=== PATIENT | male | born 1990 | race Caucasian/White ===

== ENCOUNTER 2017-09-10 12:04 | Inpatient (IN) | payer OTHER ==
[2017-09-10 13:44] VITALS: BMI 22.1
--- NOTE | 2017-09-10 17:25 | HP ---
COWS - Scale Resting Pulse: 0= [place] 80 or Below Sweatin= Chills/Flushing Restless Observation: 3= Extraneous Movement Pupil Size: 2= Moderately Dilated Bone or Joint Aches: 4=Acute Joint/Muscle Pain Runny Nose/ Eye Tearin= Runny Nose/Eyes GI Upset > 30mins: 1= Stomach Cramp Tremor Observation: 2= Slight Tremor Visible Yawning Observation: 1= 1-2x During Session Anxiety or Irritability: 2=Irritable/Anxious Goose Flesh Skin: 0=Smooth Skin COWS Score: 18 Admission ROS S - [facility] Chief Complaint: WITHDRAWAL SX FROM HEROIN Allergies/Adverse Reactions: Allergies Allergy/AdvReac Type Severity Reaction Status Date / Time buprenorphine [From Suboxone] Allergy Hives Verified 09/10/17 14:07 naloxone [From Suboxone] Allergy Hives Verified 09/10/17 14:07 History of Present Illness: 26 Y/O MALE WITH A HX OF HEROIN AND COCAINE DEPENDENCE SEEKING DETOX [place]. Exam Limitations: No Limitations - Ebola screening Have you traveled outside of the country in the last 21 days: No Have you had contact with anyone from an Ebola affected area: No Have you been sick,other than usual withdrawal symptoms: No - Review of Systems Constitutional: Chills, Loss of Appetite, Night Sweats, Changes in sleep, Unintentional Wgt. Loss EENT: reports: Tearing, Nose Congestion Respiratory: reports: No Symptoms reported Cardiac: reports: No Symptoms Reported GI: reports: Constipated, Diarrhea, Nausea, Poor Appetite, Poor Fluid Intake, Vomiting : reports: No Symptoms Reported Musculoskeletal: reports: Back Pain, Joint Pain, Muscle Pain Integumentary: reports: Dryness Neuro: reports: Tremors Endocrine: reports: No Symptoms Reported Hematology: reports: No Symptoms Reported Psychiatric: reports: Orientated x3 Other Systems: Reviewed and Negative Patient History - Patient Medical History Hx Anemia: No Hx Asthma: No Hx Chronic Obstructive Pulmonary Disease (COPD): No Hx Cardiac Disorders: No Hx Hypertension: No Hx Hypercholesterolemia: No HX Cerebrovascular Accident: No Hx Seizures: No Hx Diabetes: No Hx Gastrointestinal Disorders: No Hx Genitourinary Disorders: No Hx Sexually Transmitted Disorders: No Hx Renal Disease (ESRD): No Hx Thyroid Disease: No Hx Human Immunodeficiency Virus (HIV): No (NEGATIVE HX) Hx Hepatitis C: No Hx Depression: No Hx Suicide Attempt: No (DENIES) Hx Bipolar Disorder: No Hx Schizophrenia: No - Patient Surgical History Past Surgical History: No Hx Neurologic Surgery: No Hx Cataract Extraction: No Hx Cardiac Surgery: No Hx Lung Surgery: No Hx Breast Surgery: No Hx Breast Biopsy: No Hx Abdominal Surgery: No Hx Appendectomy: No Hx Cholecystectomy: No Hx Genitourinary Surgery: No Hx Orthopedic Surgery: No Anesthesia Reaction: No - PPD History Previous Implant?: Yes Documented Results: Negative w/o proof Implanted On Prior [facility] Admission?: No PPD to be Administered?: Yes - Reproductive History Patient is a Female of Child Bearing Age (11 -55 yrs old): No (MALE) Patient : No - Smoking Cessation Smoking history: Current every day smoker Have you smoked in the past 12 months: Yes Aproximately how many cigarettes per day: 10 Hx Chewing Tobacco Use: No Initiated information on smoking cessation: Yes 'Breaking Loose' booklet given: 09/10/17 - Substance & Tx. History Hx Alcohol Use: Yes (ON OCASSIONS) Hx Substance Use: Yes (HEROIN/COCAINE) Substance Use Type: Cocaine, Heroin Hx Substance [facility] [place] [facility] - Substances Abused Heroin Route: Injection Frequency: Daily Amount used: 0.5 gram Age of first use: 20 Date of Last Use: 09/09/17 Cocaine Route: Inhalation Frequency: 1-2 times per week Amount used: 0.5 gram Age of first use: 20 Date of Last Use: 09/08/17 Family Disease History - Family Disease History Family Disease History: Other: Father (HTN) Admission Physical Exam [facility] - Vital Signs Vital Signs: Vital Signs - 24 hr 09/10/17 13:40 Temperature 97.4 F L Pulse Rate 70 Respiratory 20 Rate Blood Pressure 99/55 - Physical General Appearance: Yes: Moderate Distress, Irritable, Anxious HEENTM: Yes: EOMI, Normocephalic, MAN, Pharynx Normal Respiratory: Yes: Chest Non-Tender, Lungs Clear, Normal Breath Sounds, No Respiratory Distress Neck: Yes: No masses,lesions,Nodules, Supple, Trachea in good position Breast: Yes: Breast Exam Deferred Cardiology: Yes: Regular Rhythm, Regular Rate, S1, S2 Abdominal: Yes: Normal Bowel Sounds, Non Tender, Flat, Soft Genitourinary: Yes: Other (N/C) Back: Yes: Within Normal Limits Musculoskeletal: Yes: full range of Motion, Gait Steady Extremities: Yes: Normal Range of Motion, Non-Tender Neurological: Yes: radiology physician assistant II-XII NML intact, Fully Oriented, Alert, Motor Strength 5/5 Integumentary: Yes: Dry, Warm, Track Álvarez (LEFT ELBOW. NO REDNESS OR SWELLING) - Diagnostic (1) Opioid dependence with withdrawal Current Visit: Yes Status: Acute (2) Cocaine dependence, uncomplicated Current Visit: Yes Status: Acute Cleared for Admission [facility] - Detox or Rehab [facility] Level of Care: Medically Managed Detox Regimen/Protocol: Methadone [facility] Breath Alcohol Content Breath Alcohol Content: 0 Urine Drug Screen - Results Drug Screen Negative: No Urine Drug Screen Results: STEPHAN-Cocaine, OPI-Opiates, BZO-Benzodiazepines, MTD- Methadone, OXY-Oxycodone
[2017-09-10] MEDS ORDERED: MENTHOL/PHENOL 1 EACH UD MM PRN (17:47)
[2017-09-10] MEDS ORDERED: MAGNESIUM HYDROX 2400MG/30ML ORAL SUSPENSION 30 ML CUP PO PRN (17:47)
[2017-09-10] MEDS ORDERED: MAGNESIUM CITRATE 300 ML BOTTLE PO PRN (17:47)
[2017-09-10] MEDS ORDERED: guaiFENesin/D-METHORPHAN HB 10 ML UNIT-DOSE CUPS PO PRN (17:47)
[2017-09-10] MEDS ORDERED: NICOTINE POLACRILEX 2 MG GUM BUC PRN (17:47)
[2017-09-10] MEDS ORDERED: P-EPHED 60MG/TRIPROLIDI 2.5MG TABLET PO PRN (17:47)
[2017-09-10] MEDS ORDERED: IBUPROFEN 400 MG TABLET (FP) PO PRN (17:47)
[2017-09-10] MEDS ORDERED: ACETAMINOPHEN 325 MG TABLET (FP) PO PRN (17:47)
[2017-09-10] MEDS ORDERED: MAG HYDROX/AL HYDROX/SIMETH 30 ML UNIT-DOSE CUP PO PRN (17:47)
[2017-09-10] MEDS ORDERED: METHADONE HCL 10 MG TABLET (FOR DETOX USE ONLY) PO ONE ×2 (19:00→23:00)
[2017-09-10] MEDS ORDERED: METHADONE HCL 10 MG TABLET (FOR DETOX USE ONLY) ONE (21:25)
[2017-09-10] MEDS: THIAMINE HCL 100 MG TABLET (FP) PO SCH (21:31)
[2017-09-10] MEDS: NICOTINE 14 MG/24 HOURS TOPICAL PATCH TD SCH (21:31)
[2017-09-10] MEDS: diazePAM 5 MG TABLET PO PRN (21:32)
[2017-09-10 23:24] LABS: URINE APPEARANCE SLCLOUDY; URINE BILIRUBIN NEGATIVE (NEGATIVE); URINE BLOOD NEGATIVE (NEGATIVE); URINE COLOR DKYELLOW; URINE GLUCOSE (UA) NEGATIVE (NEGATIVE); URINE KETONE NEGATIVE (NEGATIVE); URINE LEUK ESTERASE NEGATIVE (NEGATIVE); URINE NITRITE NEGATIVE (NEGATIVE); URINE PROTEIN NEGATIVE (NEGATIVE); URINE UROBILINOGEN NEGATIVE mg/dL (0.2-1.0)
[2017-09-11] MEDS ORDERED: METHADONE HCL 10 MG TABLET (FOR DETOX USE ONLY) PO ONE (10:00)
[2017-09-11] MEDS: NICOTINE 14 MG/24 HOURS TOPICAL PATCH TD SCH (10:06)
[2017-09-11] MEDS: PRENATAL VITAMINS W/ FOLIC ACID TABLET (FP) PO SCH (10:06)
[2017-09-11] MEDS: diazePAM 5 MG TABLET PO PRN ×3 (10:07→22:03)
[2017-09-11 10:13] LABS: CHLORIDE 104 mmol/L (98-107); HEMATOCRIT 41.7 % (35.4-49); HEMOGLOBIN 14.1 GM/dL (11.7-16.9); MCH 29.7 pg (25.7-33.7); MCHC 33.8 g/dl (32.0-35.9); MEAN CELL VOLUME 88.1 fl (80-96); MEAN PLT VOLUME 9.2 fl (7.5-11.1); PLATELET COUNT 179 K/MM3 (134-434); POTASSIUM 4.3 mmol/L (3.5-5.1); RBC 4.74 M/mm3 (4.00-5.60); RDW 13.1 % (11.9-15.9); SODIUM 142 mmol/L (136-145); WHITE BLOOD COUNT 8.6 K/mm3 (4.0-10.0)
[2017-09-11 10:30] LABS: ALBUMIN 4.1 g/dl (3.4-5.0); ALK PHOS 64 U/L (45-117); ANION GAP 8 (8-16); BILIRUBIN,TOTAL 1.2 mg/dL (0.2-1.0); BLOOD UREA NITROGEN 14 mg/dL (7-18); CALCIUM 8.9 mg/dL (8.5-10.1); CO2 30 mmol/L (21-32); GLUCOSE,RANDOM 71 mg/dL (74-106); SGOT/AST 9 U/L (15-37); SGPT/ALT 19 U/L (12-78)
[2017-09-11] MEDS ORDERED: FLU VACCINE QUAD 60 MCG/0.5 ML (MDV 17-18) IM ONE (12:00)
--- NOTE | 2017-09-11 12:15 | PN ---
S COWS - Scale Resting Pulse: 0= [place] 80 or Below Sweatin= Chills/Flushing Restless Observation: 1= Difficult to Sit Still Pupil Size: 0= Normal to Room Light Bone or Joint Aches: 2= Severe Diffuse Aches Runny Nose/ Eye Tearin= None GI Upset > 30mins: 0= None Tremor Observation of Outstretched Hands: 2= Slight Tremor Visible Yawning Observation: 1= 1-2x During Session Anxiety or Irritability: 2=Irritable/Anxious Goose Flesh Skin: 3=Piloerection COWS Score: 12 BHS Progress Note (SOAP) Subjective: Interrupted Sleep, Sweating, Fatigue, Tremors. Objective: PT. A & O X 3, OBSERVED AMBULATING ON UNIT. NO ACUTE DISTRESS. 09/11/17 12:14 Vital Signs Temperature 98.7 F 09/11/17 09:17 Pulse Rate 63 09/11/17 09:17 Respiratory Rate 18 09/11/17 09:17 Blood Pressure 121/76 09/11/17 09:17 O2 Sat by Pulse Oximetry (%) Laboratory Tests 09/10/17 09/11/17 09/11/17 Unknown 06:00 06:00 WBC 8.6 RBC 4.74 Hgb 14.1 Hct 41.7 MCV 88.1 MCH 29.7 MCHC 33.8 RDW 13.1 Plt Count 179 MPV 9.2 Sodium 142 Potassium 4.3 Chloride 104 Carbon Dioxide 30 Anion Gap 8 BUN 14 Creatinine 1.0 Creat Clearance w eGFR > 60 Random Glucose 71 L Calcium 8.9 Total Bilirubin 1.2 H AST 9 L ALT 19 Alkaline Phosphatase 64 Total Protein 7.0 Albumin 4.1 Urine Color Dkyellow Urine Appearance Slcloudy Urine pH 5.0 Ur Specific [place] 1.027 Urine Protein Negative Urine Glucose (UA) Negative Urine Ketones Negative Urine Blood Negative Urine Nitrite Negative Urine Bilirubin Negative Urine Urobilinogen Negative Ur Leukocyte Esterase Negative RPR Titer 09/11/17 06:00 WBC RBC Hgb Hct MCV MCH MCHC RDW Plt Count MPV Sodium Potassium Chloride Carbon Dioxide Anion Gap BUN Creatinine Creat Clearance w eGFR Random Glucose Calcium Total Bilirubin AST ALT Alkaline Phosphatase Total Protein Albumin Urine Color Urine Appearance Urine pH Ur Specific [place] Urine Protein Urine Glucose (UA) Urine Ketones Urine Blood Urine Nitrite Urine Bilirubin Urine Urobilinogen Ur Leukocyte Esterase RPR Titer Nonreactive LABS NOTED. Assessment: 09/11/17 12:15 WITHDRAWAL SYMPTOMS. Plan: CONTINUE DETOX.
--- NOTE | 2017-09-11 14:09 | EKG ---
Test Reason : Blood Pressure : / mmHG Vent. Rate : 055 BPM Atrial Rate : 055 BPM P-R Int : 146 ms QRS Dur : 090 ms QT Int : 424 ms P-R-T Axes : 046 085 072 degrees QTc Int : 405 ms SINUS BRADYCARDIA OTHERWISE NORMAL ECG NO PREVIOUS ECGS AVAILABLE Confirmed by MD Amos, Santana ([id number]) on 09/11/2017 2:08:53 PM Referred By: Confirmed By:Santana Trinidad MD
[2017-09-11] MEDS: LOPERAMIDE HCL 2 MG CAPSULE PO PRN (20:36)
[2017-09-11] MEDS: THIAMINE HCL 100 MG TABLET (FP) PO SCH (21:59)
[2017-09-11] MEDS ORDERED: TRIMETHOBENZAMIDE HCL 200MG/2ML INJ IM ONE (22:00)
[2017-09-12] MEDS: diazePAM 5 MG TABLET PO PRN ×4 (03:45→22:25)
[2017-09-12] MEDS ORDERED: METHADONE HCL 5 MG TABLET (FOR DETOX USE ONLY) PO ONE (10:00)
[2017-09-12] MEDS: PRENATAL VITAMINS W/ FOLIC ACID TABLET (FP) PO SCH (10:13)
[2017-09-12] MEDS: NICOTINE 14 MG/24 HOURS TOPICAL PATCH TD SCH (10:13)
[2017-09-12] MEDS: LOPERAMIDE HCL 2 MG CAPSULE PO PRN (10:14)
--- NOTE | 2017-09-12 11:16 | PN ---
BHS COWS - Scale Resting Pulse: 0= [place] 80 or Below Sweatin= Chills/Flushing Restless Observation: 1= Difficult to Sit Still Pupil Size: 0= Normal to Room Light Bone or Joint Aches: 0= None Runny Nose/ Eye Tearin= None GI Upset > 30mins: 3= Vomiting/Diarrhea Tremor Observation of Outstretched Hands: 2= Slight Tremor Visible Yawning Observation: 1= 1-2x During Session Anxiety or Irritability: 2=Irritable/Anxious Goose Flesh Skin: 3=Piloerection COWS Score: 13 BHS Progress Note (SOAP) Subjective: Interrupted sleep, Sweating, Vomiting, Stomach Cramping. Objective: PT. A & O X 3. NO ACUTE DISTRESS. 09/12/17 11:15 Vital Signs Temperature 97.6 F 09/12/17 09:13 Pulse Rate 64 09/12/17 09:13 Respiratory Rate 18 09/12/17 09:13 Blood Pressure 141/92 09/12/17 09:13 O2 Sat by Pulse Oximetry (%) Laboratory Tests 09/10/17 09/11/17 09/11/17 Unknown 06:00 06:00 WBC 8.6 RBC 4.74 Hgb 14.1 Hct 41.7 MCV 88.1 MCH 29.7 MCHC 33.8 RDW 13.1 Plt Count 179 MPV 9.2 Sodium 142 Potassium 4.3 Chloride 104 Carbon Dioxide 30 Anion Gap 8 BUN 14 Creatinine 1.0 Creat Clearance w eGFR > 60 Random Glucose 71 L Calcium 8.9 Total Bilirubin 1.2 H AST 9 L ALT 19 Alkaline Phosphatase 64 Total Protein 7.0 Albumin 4.1 Urine Color Dkyellow Urine Appearance Slcloudy Urine pH 5.0 Ur Specific [place] 1.027 Urine Protein Negative Urine Glucose (UA) Negative Urine Ketones Negative Urine Blood Negative Urine Nitrite Negative Urine Bilirubin Negative Urine Urobilinogen Negative Ur Leukocyte Esterase Negative RPR Titer 09/11/17 06:00 WBC RBC Hgb Hct MCV MCH MCHC RDW Plt Count MPV Sodium Potassium Chloride Carbon Dioxide Anion Gap BUN Creatinine Creat Clearance w eGFR Random Glucose Calcium Total Bilirubin AST ALT Alkaline Phosphatase Total Protein Albumin Urine Color Urine Appearance Urine pH Ur Specific [place] Urine Protein Urine Glucose (UA) Urine Ketones Urine Blood Urine Nitrite Urine Bilirubin Urine Urobilinogen Ur Leukocyte Esterase RPR Titer Nonreactive LABS NOTED. Assessment: 09/12/17 11:15 WITHDRAWAL SYMPTOMS. Plan: CONTINUE DETOX.
[2017-09-12] MEDS ORDERED: cloNIDine HCL 0.1 MG TABLET PO PRN (12:36)
[2017-09-12] MEDS: THIAMINE HCL 100 MG TABLET (FP) PO SCH (22:25)
[2017-09-12] MEDS: hydrOXYzine PAMOATE 50 MG CAPSULE (FP) PO PRN (22:25)
[2017-09-13] MEDS ORDERED: METHADONE HCL 5 MG TABLET (FOR DETOX USE ONLY) PO ONE (10:00)
[2017-09-13] MEDS: PRENATAL VITAMINS W/ FOLIC ACID TABLET (FP) PO SCH (10:11)
[2017-09-13] MEDS: NICOTINE 14 MG/24 HOURS TOPICAL PATCH TD SCH (11:28)
--- NOTE | 2017-09-13 11:33 | PN ---
BHS Progress Note (SOAP) Subjective: Anxious, Fatigue, Sweating. Objective: PT. A & O X 2 (UNCERTAIN ABOUT CURRENT DAY/ DATE). PT. OBSERVED AMBULATING ON UNIT. NO ACUTE DISTRESS. 09/13/17 11:32 Vital Signs Temperature 97.2 F L 09/13/17 09:58 Pulse Rate 61 09/13/17 09:58 Respiratory Rate 20 09/13/17 09:58 Blood Pressure 112/74 09/13/17 09:58 O2 Sat by Pulse Oximetry (%) Laboratory Tests 09/10/17 09/11/17 09/11/17 Unknown 06:00 06:00 WBC 8.6 RBC 4.74 Hgb 14.1 Hct 41.7 MCV 88.1 MCH 29.7 MCHC 33.8 RDW 13.1 Plt Count 179 MPV 9.2 Sodium 142 Potassium 4.3 Chloride 104 Carbon Dioxide 30 Anion Gap 8 BUN 14 Creatinine 1.0 Creat Clearance w eGFR > 60 Random Glucose 71 L Calcium 8.9 Total Bilirubin 1.2 H AST 9 L ALT 19 Alkaline Phosphatase 64 Total Protein 7.0 Albumin 4.1 Urine Color Dkyellow Urine Appearance Slcloudy Urine pH 5.0 Ur Specific [place] 1.027 Urine Protein Negative Urine Glucose (UA) Negative Urine Ketones Negative Urine Blood Negative Urine Nitrite Negative Urine Bilirubin Negative Urine Urobilinogen Negative Ur Leukocyte Esterase Negative RPR Titer 09/11/17 06:00 WBC RBC Hgb Hct MCV MCH MCHC RDW Plt Count MPV Sodium Potassium Chloride Carbon Dioxide Anion Gap BUN Creatinine Creat Clearance w eGFR Random Glucose Calcium Total Bilirubin AST ALT Alkaline Phosphatase Total Protein Albumin Urine Color Urine Appearance Urine pH Ur Specific [place] Urine Protein Urine Glucose (UA) Urine Ketones Urine Blood Urine Nitrite Urine Bilirubin Urine Urobilinogen Ur Leukocyte Esterase RPR Titer Nonreactive LABS NOTED. Assessment: 09/13/17 11:32 WITHDRAWAL SYMPTOMS. Plan: CONTINUE DETOX. INCREASE DAILY PO FLUID INTAKE. ENCOURAGE AMBULATION.
[2017-09-13] MEDS: diazePAM 5 MG TABLET PO PRN ×2 (13:13→17:28)
[2017-09-13] MEDS ORDERED: diphenhydrAMINE HCL 25 MG CAPSULE (FP) PO ONE (21:46)
[2017-09-13] MEDS: THIAMINE HCL 100 MG TABLET (FP) PO SCH (22:28)
[2017-09-13] MEDS: diphenhydrAMINE HCL 50 MG CAPSULE PO PRN (22:28)
[2017-09-14] MEDS ORDERED: METHADONE HCL 10 MG TABLET (FOR DETOX USE ONLY) PO ONE (10:00)
[2017-09-14] MEDS: PRENATAL VITAMINS W/ FOLIC ACID TABLET (FP) PO SCH (10:06)
[2017-09-14] MEDS: NICOTINE 14 MG/24 HOURS TOPICAL PATCH TD SCH (10:06)
[2017-09-14] MEDS: hydrOXYzine PAMOATE 50 MG CAPSULE (FP) PO PRN ×2 (12:16→18:17)
--- NOTE | 2017-09-14 14:56 | PN ---
BHS Progress Note (SOAP) Subjective: Sweating, Fatigue, Anxious. Objective: PT. A & O X 3, OBSERVED AMBULATING ON UNIT. NO ACUTE DISTRESS. 09/14/17 14:55 Vital Signs Temperature 96.7 F L 09/14/17 13:23 Pulse Rate 70 09/14/17 13:23 Respiratory Rate 18 09/14/17 13:23 Blood Pressure 127/75 09/14/17 13:23 O2 Sat by Pulse Oximetry (%) Laboratory Tests 09/10/17 09/11/17 09/11/17 Unknown 06:00 06:00 WBC 8.6 RBC 4.74 Hgb 14.1 Hct 41.7 MCV 88.1 MCH 29.7 MCHC 33.8 RDW 13.1 Plt Count 179 MPV 9.2 Sodium 142 Potassium 4.3 Chloride 104 Carbon Dioxide 30 Anion Gap 8 BUN 14 Creatinine 1.0 Creat Clearance w eGFR > 60 Random Glucose 71 L Calcium 8.9 Total Bilirubin 1.2 H AST 9 L ALT 19 Alkaline Phosphatase 64 Total Protein 7.0 Albumin 4.1 Urine Color Dkyellow Urine Appearance Slcloudy Urine pH 5.0 Ur Specific [place] 1.027 Urine Protein Negative Urine Glucose (UA) Negative Urine Ketones Negative Urine Blood Negative Urine Nitrite Negative Urine Bilirubin Negative Urine Urobilinogen Negative Ur Leukocyte Esterase Negative RPR Titer 09/11/17 06:00 WBC RBC Hgb Hct MCV MCH MCHC RDW Plt Count MPV Sodium Potassium Chloride Carbon Dioxide Anion Gap BUN Creatinine Creat Clearance w eGFR Random Glucose Calcium Total Bilirubin AST ALT Alkaline Phosphatase Total Protein Albumin Urine Color Urine Appearance Urine pH Ur Specific [place] Urine Protein Urine Glucose (UA) Urine Ketones Urine Blood Urine Nitrite Urine Bilirubin Urine Urobilinogen Ur Leukocyte Esterase RPR Titer Nonreactive LABS NOTED. Assessment: 09/14/17 14:55 WITHDRAWAL SYMPTOMS. Plan: CONTINUE DETOX. INCREASE DAILY PO FLUID INTAKE.
[2017-09-14] MEDS: THIAMINE HCL 100 MG TABLET (FP) PO SCH (22:03)
[2017-09-14] MEDS: diphenhydrAMINE HCL 50 MG CAPSULE PO PRN (22:03)
[2017-09-14 22:17] VITALS: TEMP 97.1
[2017-09-15] MEDS ORDERED: METHADONE HCL 5 MG TABLET (FOR DETOX USE ONLY) PO ONE (06:00)
[2017-09-15 06:02] VITALS: BP 94/61; PULSE 65
[2017-09-15] MEDS: NICOTINE 14 MG/24 HOURS TOPICAL PATCH TD SCH (10:52)
[2017-09-15] MEDS: PRENATAL VITAMINS W/ FOLIC ACID TABLET (FP) PO SCH (10:53)
--- NOTE | 2017-09-15 19:31 | DS ---
[facility] Detox Discharge Summary Admission Date: 09/10/17 Discharge Date: 09/15/17 - History Present History: Cocaine Dependence, Opioid Dependence Additional Comments: PATIENT GOING HOME, WILL ATTEND 'COVER CARE' PROGRAM (INCLUDING [facility]) FOR AFTERCARE. PATIENT WAS DISCHARGED FROM DETOX UNIT IN STABLE MEDICAL CONDITION. - Physical Exam Results Vital Signs: Vital Signs Temperature 97.1 F L 09/15/17 06:01 Pulse Rate 65 09/15/17 06:01 Respiratory Rate 16 09/15/17 06:01 Blood Pressure 94/61 09/15/17 06:01 O2 Sat by Pulse Oximetry (%) Pertinent Admission Physical Exam Findings: WITHDRAWAL SYMPTOMS. Laboratory Tests 09/10/17 09/11/17 09/11/17 Unknown 06:00 06:00 WBC 8.6 RBC 4.74 Hgb 14.1 Hct 41.7 MCV 88.1 MCH 29.7 MCHC 33.8 RDW 13.1 Plt Count 179 MPV 9.2 Sodium 142 Potassium 4.3 Chloride 104 Carbon Dioxide 30 Anion Gap 8 BUN 14 Creatinine 1.0 Creat Clearance w eGFR > 60 Random Glucose 71 L Calcium 8.9 Total Bilirubin 1.2 H AST 9 L ALT 19 Alkaline Phosphatase 64 Total Protein 7.0 Albumin 4.1 Urine Color Dkyellow Urine Appearance Slcloudy Urine pH 5.0 Ur Specific [place] 1.027 Urine Protein Negative Urine Glucose (UA) Negative Urine Ketones Negative Urine Blood Negative Urine Nitrite Negative Urine Bilirubin Negative Urine Urobilinogen Negative Ur Leukocyte Esterase Negative RPR Titer 09/11/17 06:00 WBC RBC Hgb Hct MCV MCH MCHC RDW Plt Count MPV Sodium Potassium Chloride Carbon Dioxide Anion Gap BUN Creatinine Creat Clearance w eGFR Random Glucose Calcium Total Bilirubin AST ALT Alkaline Phosphatase Total Protein Albumin Urine Color Urine Appearance Urine pH Ur Specific [place] Urine Protein Urine Glucose (UA) Urine Ketones Urine Blood Urine Nitrite Urine Bilirubin Urine Urobilinogen Ur Leukocyte Esterase RPR Titer Nonreactive LABS NOTED. - Treatment Hospital Course: Detox Protocol Followed, Detoxed Safely, Responded well, Discharged Condition Good Patient has Accepted a Rehab Referral to: PT. GOING TO 'COVER CARE' OUTPATIENT PROGRAM AND [facility] FOR AFTERCARE. - Medication Discharge Medications: Ambulatory Orders NK [No Known Home Medication] 09/10/17 - Diagnosis (1) Cocaine dependence, uncomplicated Status: Acute (2) Opioid dependence with withdrawal Status: Acute - AMA Did Patient Leave Against Medical Advice: No
== END 2017-09-15 09:25 | disposition home or self-care (01) | DRG 773 ==
LOC: YASAS 12:04 → Y3N 18:43
PROVIDERS: ADMIT Internal Medicine; ATTEND Internal Medicine
PROC: HZ2ZZZZ Detoxification Services for Substance Abuse Treatment (ICD-10-PCS; principal; 2017-09-10)
DX: F11.23 Opioid dependence with withdrawal (principal); F14.20 Cocaine dependence, uncomplicated; F17.210 Nicotine dependence, cigarettes, uncomplicated
CPT/HCPCS: 36415; 80053; 81003; 85027; 86593; 90688; 93005; 93010; J0735